=== PATIENT | male | born 1975 | race Caucasian/White ===

== ENCOUNTER 2019-11-23 09:32 | Emergency (ER) | payer OTHER, SELFPAY ==
[2019-11-23 10:11] VITALS: BP 135/83; PULSE 98; RESP 18; TEMP 36.2; O2SAT 100
--- NOTE | 2019-11-23 10:15 | DI.RAD.S_ITS ---
PROCEDURE: XR CHEST 2V INDICATIONS: 3 weeks cough, now left low posterior chest pain TECHNIQUE: 2 views of the chest were acquired. COMPARISON: None. FINDINGS: Surgical changes and devices: None. Lungs and pleura: Lungs are clear. No pleural effusions or pneumothorax. Mediastinum: Mediastinal contours are normal. Heart size is normal. Bones and chest wall: No suspicious bony abnormalities. Soft tissues appear unremarkable. IMPRESSION: No acute pulmonary process. Dictated by: Joi Adams M.D. on 11/23/2019 at 10:43 Approved by: Joi Adams M.D. on 11/23/2019 at 10:44
--- NOTE | 2019-11-23 11:25 | ED_ITS ---
HPI - URI/Sore Throat <ANNMARIE Ware - Last Filed: 11/23/19 20:30> General Chief Complaint: Upper Respiratory Symptoms Stated Complaint: Pain in left side, SOB Time Seen by Provider: 11/23/19 11:15 Source: patient Mode of arrival: Ambulatory Limitations: no limitations History of Present Illness HPI Narrative: 44-year-old male presents emergency department today complaining of a productive cough for over 3 weeks. He states that initially started with a sore throat and runny nose but has progressed to a prolonged cough. He states he feels wheezy and night. He denies any history of using an inhaler or any history of respiratory illnesses such as asthma. Patient reports associated left-sided rib pain that is worse with palpation and worse with cough, he describes it as a intermittent sharp stabbing 3/10 pain. He also reports associated postnasal drip. Patient denies any fevers, chills, nausea, vomiting, diarrhea, dizziness, or other concerns. Related Data Home Medications Medication Instructions Recorded Confirmed cetirizine 10 mg PO QDAY #0 10/24/17 clonazepam 0.5 mg PO DIRECTED 11/23/19 11/23/19 Previous Rx's Medication Instructions Recorded finasteride [Propecia] 1 mg PO QDAY #30 tab 10/24/17 mupirocin 1 tim TOPICAL TID #22 gm 10/24/17 albuterol sulfate 2 puff INHALATION Q4-6H PRN #8 gram 11/23/19 benzonatate [Tessalon Perles] 100 mg PO BID-TID PRN #30 cap 11/23/19 doxycycline hyclate 100 mg PO BID 7 Days #14 tab 11/23/19 Allergies Allergy/AdvReac Type Severity Reaction Status Date / Time No Known Drug Allergies Allergy Verified 11/23/19 10:14 Review of Systems <ANNMARIE Ware - Last Filed: 11/23/19 20:30> Review of Systems Narrative: REVIEW OF SYSTEMS: GENERAL: Denies fevers. HENT: No head trauma or hearing loss. EYES: No loss of vision, double vision, eye pain, irritation or discharge. CARDIOVASCULAR: No chest pain or syncope. RESPIRATORY: No shortness of breath. Complains of cough, see HPI. GASTROINTESTINAL: No nausea, vomiting, diarrhea, or constipation. MUSCULOSKELETAL: No weakness or injury. INTEGUMENTARY: No rash, lesions, or pruritus. NEURO: No memory loss, or confusion. Patient History <ANNMARIE Ware - Last Filed: 11/23/19 20:30> Medical History No significant medical problems (Acute) Social History Smoking Status: Never smoker Smoking Status: Never smoker alcohol intake frequency: holidays/special occasions only Substance Use Type: does not use Exam <ANNMARIE Ware - Last Filed: 11/23/19 20:30> Initial Vital Signs Initial Vital Signs: Vital Signs Temperature 97.1 F L 11/23/19 10:11 Pulse Rate 98 H 11/23/19 10:11 Respiratory Rate 18 11/23/19 10:11 Blood Pressure 135/83 11/23/19 10:11 Pulse Oximetry 100 11/23/19 10:11 PHYSICAL EXAMINATION: GENERAL: Well groomed, alert, and cooperative. Answers questions promptly and appropriately. Vital signs noted. HENT: Normocephalic, atraumatic. Ear canals patent. TMs intact without mucus or erythema. Oropharynx with small amount of erythema, Tonsils are not present. EYES: Conjunctiva pink, sclera white, no periorbital swelling. No discharge. CHEST: Tenderness to palpation of left ribs along axillary line. CARDIOVASCULAR: S1 and S2 sounds normal. Regular rate and rhythm, no murmurs, clicks, or bruits. RESPIRATORY: Normal respiratory rate, trachea midline, airway patent. No stridor, nasal flaring or accessory muscle use. Able to speak in full sentences. Lungs expiratory wheezes heard throughout all lung chand, moderate improvement after DuoNeb administration. Productive cough noted during exam. No crackles. MUSCULOSKELETAL: Normal gait and coordination. Equal tone and mass bilaterally. EXTREMITIES: Moves all extremities. SKIN: Warm, dry, soft, appropriate color for ethnicity. No lesions, rashes, or wounds. NEURO: Alert and Oriented X 3. Good coordination. No ataxia or cognitive issues. PSYCH: Appropriate affect and mood. <Natacha Vazquez DO - Last Filed: 11/24/19 19:06> Initial Vital Signs Initial Vital Signs: Vital Signs Temperature 97.1 F L 11/23/19 10:11 Pulse Rate 98 H 11/23/19 10:11 Respiratory Rate 18 11/23/19 10:11 Blood Pressure 135/83 11/23/19 10:11 Pulse Oximetry 100 11/23/19 10:11 Course <ANNMARIE Ware - Last Filed: 11/23/19 20:30> Course Course Narrative: Patient was given a DuoNeb in the emergency department, he reported improved symptoms. Patient still continued to have some wheezes, after discussion about risks and benefits with patient, patient opted to have a dose of Decadron to decrease wheezes and reactive airway component of illness. Patient was also given Toradol IM injection which he reported significant decrease in rib pain after administration. Patient remained hemodynamically stable, alert and talking in full sentences throughout the entire emergency department stay. Orders Ordered: Discontinued Medications Albuterol (Ventolin) 2.5 mg INH NOW ONE Stop: 11/23/19 11:19 Last Admin: 11/23/19 11:29 Dose: 2.5 mg Documented by: DIANE Dexamethasone (Decadron) 10 mg PO NOW ONE Stop: 11/23/19 11:53 Last Admin: 11/23/19 12:01 Dose: 10 mg Documented by: YASMANY Ketorolac Tromethamine (Toradol) 30 mg IM NOW ONE Stop: 11/23/19 11:25 Last Admin: 11/23/19 11:36 Dose: 30 mg Documented by: JESSI Vital Signs Vital signs: Vital Signs - 8 hr 11/23/19 10:11 11/23/19 11:30 Temperature 97.1 F L Pulse Rate 98 H 81 Respiratory Rate 18 14 Blood Pressure 135/83 Pulse Oximetry 100 98 <Natacha Vazquez DO - Last Filed: 11/24/19 19:06> Orders Ordered: Discontinued Medications Albuterol (Ventolin) 2.5 mg INH NOW ONE Stop: 11/23/19 11:19 Last Admin: 11/23/19 11:29 Dose: 2.5 mg Documented by: DIANE Dexamethasone (Decadron) 10 mg PO NOW ONE Stop: 11/23/19 11:53 Last Admin: 11/23/19 12:01 Dose: 10 mg Documented by: YASMANY Ketorolac Tromethamine (Toradol) 30 mg IM NOW ONE Stop: 11/23/19 11:25 Last Admin: 11/23/19 11:36 Dose: 30 mg Documented by: JESSI Vital Signs Vital signs: Vital Signs - 8 hr 11/23/19 10:11 11/23/19 11:30 Temperature 97.1 F L Pulse Rate 98 H 81 Respiratory Rate 18 14 Blood Pressure 135/83 Pulse Oximetry 100 98 MDM - URI/Sore Throat <Yadira CalderónANNMARIE - Last Filed: 11/23/19 20:30> Medical Records Attestation: I reviewed the patient's medical records. Lab Data Attestation: I reviewed the patient's lab results. Labs: Lab Results 11/23/19 Range/Units 10:15 Influenza A (RT-PCR) Flu a negative (NEGATIVE) Influenza B (RT-PCR) Flu b negative (NEGATIVE) Imaging Data Chest x-ray: Radiologist's Impression: [address] [address] XRay Report Signed Patient: Al Roche [facility]#: [id number] : 1975Acct:[id number] Age/Sex: 44 / MDate of Service: 11/23/19 Loc: ED Accession Number: [id number] Procedure: XR chest 2V Ordering Provider: Natacha Vazquez D.O. PROCEDURE: XR CHEST 2V INDICATIONS: 3 weeks cough, now left low posterior chest pain TECHNIQUE: 2 views of the chest were acquired. COMPARISON: None. FINDINGS: Surgical changes and devices: None. Lungs and pleura: Lungs are clear. No pleural effusions or pneumothorax. Mediastinum: Mediastinal contours are normal. Heart size is normal. Bones and chest wall: No suspicious bony abnormalities. Soft tissues appear unremarkable. IMPRESSION: No acute pulmonary process. Dictated by: Joi Adams M.D. on 11/23/2019 at 10:43 Approved by: Joi Adams M.D. on 11/23/2019 at 10:44 [facility] Narrative Medical decision making narrative: 44-year-old male presents emergency department for 3 weeks of cough and wheezing. History and examination most concerning for atypical pneumonia due to prolonged illness, coarse breath sounds, and wheezes. Differential also includes bronchitis and sinusitis but less likely due to presenting symptoms. Less likely influenza as swab is negative. I suspect there is a slight reactive airway component to this due to decreased wheezes after DuoNeb administration. Patient was given prescriptions for doxycycline and albuterol. He is also given a dose of dexamethasone due to significant wheezes on arrival. He was counseled extensively to return emergency department for new or worsening symptoms such as increased wheezing or high fevers. Patient verbalized understanding of plan of care. <Natacha Vazquez DO - Last Filed: 11/24/19 19:06> Lab Data Labs: Lab Results 11/23/19 Range/Units 10:15 Influenza A (RT-PCR) Flu a negative (NEGATIVE) Influenza B (RT-PCR) Flu b negative (NEGATIVE) Discharge Plan Departure Patient Disposition: Home Clinical Impression: Bronchitis, Atypical pneumonia Discharge Date/Time: 11/23/19 12:22 Instructions: DI for Acute Bronchitis, DI for Reactive Airway Disease-Adult, DI for Atypical Pneumonia Activity Restrictions/Additional Instructions: Thank you for entrusting me with your care today. As discussed, your chest x-ray is negative for any pleural effusions or pneumonia. Influenza swab is negative. Your symptoms are most consistent with bronchitis and atypical pneumonia. You been prescribed antibiotics and inhaler. I've also given you a cough suppressant to use at night. Please follow up with your primary care provider in 1-2 weeks for re-evaluation. Return emergency department for new or worsening symptoms such as high fevers, chest pain, worsening shortness breath, or other concerns. Prescriptions: New doxycycline hyclate 100 mg tablet 100 mg PO BID 7 Days Qty: 14 RF: 0 albuterol sulfate 90 mcg/actuation HFA aerosol inhaler 2 puff INHALATION Q4-6H PRN (Reason: shortness of breath or wheezing) Qty: 8 RF: 0 benzonatate [Tessalon Perles] 100 mg capsule 100 mg PO BID-TID PRN (Reason: cough) Qty: 30 RF: 0 No Action cetirizine 10 MG tablet 10 mg PO QDAY Qty: 0 RF: 0 mupirocin 2 % ointment 1 tim Topical TID Qty: 22 RF: 0 finasteride [Propecia] 1 MG tablet 1 mg PO QDAY Qty: 30 RF: 2 clonazepam 0.5 mg tablet 0.5 mg PO DIRECTED RF: 0 Referrals: Davida Montesinos DO [Primary Care Provider] -
[2019-11-23] MEDS: ALBUTEROL 2.5 MG/3 ML NEB (ADULT) INH (11:29)
[2019-11-23 11:30] VITALS: PULSE 81; RESP 14; O2SAT 98
[2019-11-23] MEDS: KETOROLAC 60 MG/2 ML VIAL 30 MG IM (11:36)
[2019-11-23 11:49] LABS: Influenza A - CEPHEID Flu A NEGATIVE (NEGATIVE); Influenza B - CEPHEID Flu B NEGATIVE (NEGATIVE)
[2019-11-23] MEDS: DEXAMETHASONE 10 MG/ML VIAL PO (12:01)
== END 2019-11-23 12:22 | disposition home or self-care (01) ==
PROVIDERS: Emergency Medicine; Emergency Provider Nurse Practitioner; PCP Family Medicine
DX: J18.9 Pneumonia, unspecified organism (principal); J40 Bronchitis, not specified as acute or chronic
CPT/HCPCS: 71046; 87502; 94640; 96372; 99283; J1100; J1885; J7613

== ENCOUNTER → 2020-02-03 15:02 | Outpatient (ROUT) | payer OTHER, SELFPAY ==
[2020-02-03 16:37] LABS: Alanine Aminotransferase 25 IU/L (<50); Albumin 4.6 g/dL (3.5-5.0); Albumin Globulin Ratio 1.6 (1.0-2.8); Alkaline Phosphatase 87 U/L (38-126); Aspartate Aminotransferase 24 IU/L (17-59); BUN Creatinine Ratio 13.7 (6-22); Bilirubin Total 0.6 mg/dL (0.2-1.3); Bilirubin Unconjugated 0.4 mg/dL (0.0-1.1); Blood Urea Nitrogen 16 mg/dL (9-20); Calcium 10.2 mg/dL (8.4-10.2); Carbon Dioxide 23 mmol/L (22-32); Chloride 101 mmol/L (98-107); Estimated Glomerular Filt Rate > 60.0 mL/min (>60); Globulin 2.9 g/dL (1.7-4.1); Glucose 92 mg/dL (70-100); HEMOLYSIS < 15 (0-50); Potassium 4.1 mmol/L (3.4-5.1); Sodium 135 mmol/L (137-145); Total Protein 7.5 g/dL (6.3-8.2)
[2020-02-03 17:24] LABS: Add Manual Diff / Slide Review NO; Basophils Absolute Auto 100 /uL (0-100); Basophils Percent Auto 0.5 % (0-2); Eosinophils Absolute Auto 0 /uL (0-450); Eosinophils Percent Auto 0.2 % (2-4); Hematocrit 44.4 % (41-53); Hemoglobin 14.9 g/dL (13.5-17.5); Lymphocytes Absolute Auto 2600 /uL (1100-4500); Lymphocytes Percent Auto 22.7 % (25-40); Mean Corpuscular HGB Conc 33.5 % (30-36); Mean Corpuscular Hemoglobin 30.7 PG (26-34); Mean Corpuscular Volume 91.4 fL (80-100); Monocytes Absolute Auto 800 /uL (0-900); Monocytes Percent Auto 6.9 % (3-14); Neutrophils Absolute Auto 7900 /uL (1500-7000); Neutrophils Percent Auto 69.7 % (50-75); Platelet Count 286 X10^3/uL (150-400); Red Blood Cell Count 4.85 X10^6/uL (4.5-5.9); Red Cell Distribution Width 13.6 % (11.6-14.8); White Blood Cell Count 11.3 X10^3/uL (4.5-11.0)
== END ==
PROVIDERS: PCP Family Medicine; Visit Provider Internal Medicine Infectious Disease
DX: R76.0 Raised antibody titer (principal)
CPT/HCPCS: 80053; 80076; 85025

== ENCOUNTER → 2020-04-01 14:50 | Outpatient (CLI) | payer OTHER, SELFPAY ==
[2020-04-01 14:54] LABS: Bacteria Urine None Seen; RBC Urine None Seen (0-5/HPF); WBC Urine None Seen (0-5/HPF)
[2020-04-01 16:07] LABS: Add Manual Diff / Slide Review NO; Basophils Absolute Auto 100 /uL (0-100); Basophils Percent Auto 1.1 % (0-2); Eosinophils Absolute Auto 100 /uL (0-450); Eosinophils Percent Auto 1.5 % (2-4); Hematocrit 45.7 % (41-53); Hemoglobin 15.2 g/dL (13.5-17.5); Lymphocytes Absolute Auto 1200 /uL (1100-4500); Lymphocytes Percent Auto 20.8 % (25-40); Mean Corpuscular HGB Conc 33.3 % (30-36); Mean Corpuscular Hemoglobin 31.7 PG (26-34); Mean Corpuscular Volume 95.2 fL (80-100); Monocytes Absolute Auto 600 /uL (0-900); Monocytes Percent Auto 9.9 % (3-14); Neutrophils Absolute Auto 3800 /uL (1500-7000); Neutrophils Percent Auto 66.7 % (50-75); Platelet Count 224 X10^3/uL (150-400); Red Cell Distribution Width 14.4 % (11.6-14.8); White Blood Cell Count 5.7 X10^3/uL (4.5-11.0)
[2020-04-01 16:18] LABS: Appearance Urine UA CLEAR; Bilirubin Urine UA NEGATIVE (NEGATIVE); Color Urine UA YELLOW; Glucose Urine UA NEGATIVE (Negative); Ketones Urine UA 1+ (NEGATIVE); Leukocyte Esterase Urine UA NEGATIVE (NEGATIVE); Nitrite Urine UA NEGATIVE (Negative); Occult Blood Urine UA NEGATIVE (Negative); Protein Urine UA NEGATIVE (Negative); Urobilinogen Urine UA 0.2 E.U./dL (0.2)
[2020-04-01 16:30] LABS: Culture Indicated Urine Cult Not Indicated; Urine Comments Microscopic Normal
[2020-04-01 17:46] LABS: Prostate Specific Antigen 0.163 ng/mL (0.10-4.00)
== END ==
PROVIDERS: PCP Family Medicine; Referring Provider Family Medicine; Visit Provider Family Medicine
DX: R33.8 Other retention of urine (principal)
CPT/HCPCS: 36415; 81001; 84153; 85025

== ENCOUNTER → 2020-05-10 15:24 | Outpatient (CLI) | payer OTHER, SELFPAY ==
--- NOTE | 2020-05-10 15:26 | DI.RAD.S_ITS ---
PROCEDURE: XR SHOULDER RT MIN 2V INDICATIONS: Shoulder pain TECHNIQUE: 3 views of the shoulder were acquired. COMPARISON: None. FINDINGS: Bones: No fractures or dislocations. No suspicious bony lesions. Visualized ribs appear intact. Presumed subcentimeter bone island projects in the humeral head. Slight lateral downsloping appearance of the acromion. Moderate AC joint degeneration. Soft tissues: No suspicious soft tissue calcifications. IMPRESSION: Slight lateral downsloping appearance of the acromion Moderate AC joint degeneration. Elsewhere, grossly unremarkable examination. If the patient's pain or other symptoms persist, consider further evaluation with MRI Dictated by: Jin Macdonald M.D. on 05/10/2020 at 16:39 Approved by: Jin Macdonald M.D. on 05/10/2020 at 16:41
== END ==
PROVIDERS: PCP Family Medicine; Referring Provider Family Medicine; Visit Provider Family Medicine
DX: M25.511 Pain in right shoulder (principal); M19.011 Primary osteoarthritis, right shoulder
CPT/HCPCS: 73030

== ENCOUNTER → 2020-09-23 09:39 | Outpatient (CLI) | payer OTHER, SELFPAY ==
--- NOTE | 2020-09-23 09:40 | DI.CT.S_ITS ---
PROCEDURE: CT SINUS SCREEN WO CON INDICATIONS: Persistent frontal headache sinus pressure TECHNIQUE: Noncontrast 3.0 mm axial images acquired from the frontal sinuses to the mid-sella, with coronal and sagittal reformats. For radiation dose reduction, the following was used: automated exposure control, adjustment of mA and/or kV according to patient size. COMPARISON: None. FINDINGS: Image quality: Excellent. Paranasal sinuses are normally aerated. No mucosal thickening identified in the paranasal sinuses. No air-fluid levels in the paranasal sinuses. The ostiomeatal units are patent bilaterally. No osseous thickening, osseous remodeling or osseous erosive changes. Nasal septum is slightly deviated to the right anteriorly. No rolanda bullosa or paradoxical turbinates. IMPRESSION: No paranasal sinus mucosal thickening or air-fluid levels. Dictated by: Charmaine Castano MD, PhD on 09/23/2020 at 10:07 Approved by: Charmaine Castano MD, PhD on 09/23/2020 at 10:09
== END ==
PROVIDERS: PCP Family Medicine; Referring Provider Family Medicine; Visit Provider Family Medicine
DX: J32.9 Chronic sinusitis, unspecified (principal); R51.9 Headache, unspecified
CPT/HCPCS: 70486

== ENCOUNTER → 2020-09-28 13:05 | Outpatient (CLI) | payer OTHER, SELFPAY ==
[2020-09-28 13:47] LABS: Influenza A - CEPHEID Flu A NEGATIVE (NEGATIVE); Influenza B - CEPHEID Flu B NEGATIVE (NEGATIVE)
[2020-09-29 11:36] LABS: COVID19 Sendout Not Detected (Not Detected)
== END ==
PROVIDERS: PCP Family Medicine; Visit Provider Physician Assistant
DX: J02.9 Acute pharyngitis, unspecified (principal); J32.9 Chronic sinusitis, unspecified
CPT/HCPCS: 87502; 87635

== ENCOUNTER → 2021-01-18 08:35 | Outpatient (CLI) | payer OTHER, SELFPAY ==
[2021-01-18 09:44] LABS: Add Manual Diff / Slide Review NO; Basophils Absolute Auto 100 /uL (0-100); Basophils Percent Auto 1.5 % (0-2); Eosinophils Absolute Auto 100 /uL (0-450); Eosinophils Percent Auto 1.6 % (2-4); Hematocrit 43.9 % (41-53); Hemoglobin 14.7 g/dL (13.5-17.5); Lymphocytes Absolute Auto 1600 /uL (1100-4500); Lymphocytes Percent Auto 31.3 % (25-40); Mean Corpuscular HGB Conc 33.6 % (30-36); Mean Corpuscular Hemoglobin 31.8 PG (26-34); Mean Corpuscular Volume 94.8 fL (80-100); Monocytes Absolute Auto 400 /uL (0-900); Monocytes Percent Auto 8.3 % (3-14); Neutrophils Absolute Auto 2900 /uL (1500-7000); Neutrophils Percent Auto 57.3 % (50-75); Platelet Count 140 X10^3/uL (150-400); Red Blood Cell Count 4.64 X10^6/uL (4.5-5.9); Red Cell Distribution Width 13.2 % (11.6-14.8); White Blood Cell Count 5.1 X10^3/uL (4.5-11.0)
[2021-01-18 10:11] LABS: Alanine Aminotransferase 69 IU/L (<50); Albumin 4.3 g/dL (3.5-5.0); Albumin Globulin Ratio 1.6 (1.0-2.8); Alkaline Phosphatase 92 U/L (38-126); Aspartate Aminotransferase 46 IU/L (17-59); BUN Creatinine Ratio 13.6 (6-22); Bilirubin Total 0.5 mg/dL (0.2-1.3); Blood Urea Nitrogen 18 mg/dL (9-20); Calcium 9.5 mg/dL (8.4-10.2); Carbon Dioxide 31 mmol/L (22-32); Chloride 102 mmol/L (98-107); Estimated Glomerular Filt Rate 59.2 mL/min (>60); Globulin 2.7 g/dL (1.7-4.1); Glucose 91 mg/dL (70-100); HEMOLYSIS < 15 (0-50); Potassium 4.3 mmol/L (3.4-5.1); Sodium 138 mmol/L (137-145)
[2021-01-18 10:35] LABS: Thyroid Stimulating Hormone 2.37 uIU/mL (0.47-4.68)
== END ==
PROVIDERS: PCP Family Medicine; Referring Provider Family Medicine; Visit Provider Family Medicine
DX: G35 Multiple sclerosis (principal); R53.83 Other fatigue
CPT/HCPCS: 36415; 80053; 84443; 85025

== ENCOUNTER → 2021-01-24 10:56 | Outpatient (CLI) | payer OTHER, SELFPAY ==
[2021-01-24 13:52] LABS: Creatinine Urine Random 68.7 mg/dL
[2021-01-24 13:59] LABS: Microalbumin Urine Random < 0.6 mg/dL (0-1.6)
== END ==
PROVIDERS: PCP Family Medicine; Referring Provider Family Medicine; Visit Provider Family Medicine
DX: G35 Multiple sclerosis (principal)
CPT/HCPCS: 82043; 82570

== ENCOUNTER → 2021-05-23 11:54 | Outpatient (CLI) | payer OTHER, SELFPAY ==
[2021-05-23 12:43] LABS: Reticulocyte Count, Percent 0.8 % (0.87-2.60)
[2021-05-23 12:46] LABS: Add Manual Diff / Slide Review NO; Basophils Absolute Auto 0 /uL (0-100); Basophils Percent Auto 0.8 % (0-2); Eosinophils Absolute Auto 100 /uL (0-450); Eosinophils Percent Auto 1.3 % (2-4); Hematocrit 41.8 % (41-53); Hemoglobin 13.9 g/dL (13.5-17.5); Lymphocytes Absolute Auto 1500 /uL (1100-4500); Lymphocytes Percent Auto 30.2 % (25-40); Mean Corpuscular HGB Conc 33.3 % (30-36); Mean Corpuscular Volume 96.1 fL (80-100); Monocytes Absolute Auto 500 /uL (0-900); Monocytes Percent Auto 9.8 % (3-14); Neutrophils Absolute Auto 3000 /uL (1500-7000); Neutrophils Percent Auto 57.9 % (50-75); Platelet Count 155 X10^3/uL (150-400); Red Blood Cell Count 4.35 X10^6/uL (4.5-5.9); Red Cell Distribution Width 12.9 % (11.6-14.8); White Blood Cell Count 5.1 X10^3/uL (4.5-11.0)
[2021-05-23 13:13] LABS: Alanine Aminotransferase 75 IU/L (<50); Albumin 4.2 g/dL (3.5-5.0); Albumin Globulin Ratio 1.6 (1.0-2.8); Alkaline Phosphatase 91 U/L (38-126); Aspartate Aminotransferase 57 IU/L (17-59); BUN Creatinine Ratio 23.6 (6-22); Bilirubin Total 0.3 mg/dL (0.2-1.3); Blood Urea Nitrogen 25 mg/dL (9-20); Calcium 9.6 mg/dL (8.4-10.2); Carbon Dioxide 29 mmol/L (22-32); Chloride 104 mmol/L (98-107); Estimated Glomerular Filt Rate > 60.0 mL/min (>60); Globulin 2.6 g/dL (1.7-4.1); Glucose 89 mg/dL (70-100); HEMOLYSIS < 15 (0-50); Potassium 4.6 mmol/L (3.4-5.1); Sodium 138 mmol/L (137-145); Total Protein 6.8 g/dL (6.3-8.2)
[2021-05-23 13:43] LABS: TSH w/ Reflex to FT4 1.44 uIU/mL (0.47-4.68)
[2021-05-23 16:13] LABS: Creatinine Urine Random 26.6 mg/dL
[2021-05-23 16:22] LABS: Microalbumin Urine Random < 0.6 mg/dL (0-1.6)
== END ==
PROVIDERS: PCP Family Medicine; Referring Provider Family Medicine; Visit Provider Family Medicine
DX: R89.9 Unspecified abnormal finding in specimens from other organs, systems and tissues (principal)
CPT/HCPCS: 36415; 80053; 82043; 82570; 84443; 85025; 85045

== ENCOUNTER → 2022-08-07 11:52 | Outpatient (CLI) | payer OTHER, SELFPAY ==
[2022-08-07 13:40] LABS: Add Manual Diff / Slide Review NO; Basophils Absolute Auto 100 /uL (0-100); Basophils Percent Auto 1.3 % (0-2); Eosinophils Absolute Auto 100 /uL (0-450); Eosinophils Percent Auto 1.4 % (2-4); Hematocrit 43.8 % (41-53); Hemoglobin 14.8 g/dL (13.5-17.5); Lymphocytes Absolute Auto 1700 /uL (1100-4500); Lymphocytes Percent Auto 31.9 % (25-40); Mean Corpuscular HGB Conc 33.8 % (30-36); Mean Corpuscular Hemoglobin 31.6 PG (26-34); Mean Corpuscular Volume 93.6 fL (80-100); Monocytes Absolute Auto 400 /uL (0-900); Monocytes Percent Auto 7.4 % (3-14); Neutrophils Absolute Auto 3000 /uL (1500-7000); Platelet Count 217 X10^3/uL (150-400); Red Blood Cell Count 4.68 X10^6/uL (4.5-5.9); Red Cell Distribution Width 12.9 % (11.6-14.8); White Blood Cell Count 5.2 X10^3/uL (4.5-11.0)
[2022-08-07 13:55] LABS: Alanine Aminotransferase 45 IU/L (<50); Albumin 4.5 g/dL (3.5-5.0); Albumin Globulin Ratio 1.4 (1.0-2.8); Alkaline Phosphatase 101 U/L (38-126); Aspartate Aminotransferase 43 IU/L (17-59); BUN Creatinine Ratio 17.1 (6-22); Bilirubin Total 0.6 mg/dL (0.2-1.3); Blood Urea Nitrogen 19 mg/dL (9-20); Calcium 9.3 mg/dL (8.4-10.2); Carbon Dioxide 30 mmol/L (22-32); Chloride 100 mmol/L (98-107); Estimated Glomerular Filt Rate > 60 mL/min (>60); Globulin 3.3 g/dL (1.7-4.1); Glucose 86 mg/dL (70-100); HEMOLYSIS < 15 (0-50); Potassium 4.2 mmol/L (3.4-5.1); Sodium 140 mmol/L (137-145); Total Protein 7.8 g/dL (6.3-8.2)
[2022-08-07 14:26] LABS: Ferritin 38 ng/mL (18-464)
[2022-08-07 14:40] LABS: Vitamin B12 569 pg/mL (239-931)
== END ==
PROVIDERS: PCP Family Medicine; Referring Provider Nurse Practitioner; Visit Provider Nurse Practitioner
DX: G37.9 Demyelinating disease of central nervous system, unspecified (principal); G25.81 Restless legs syndrome; G62.9 Polyneuropathy, unspecified
CPT/HCPCS: 36415; 80053; 82607; 82728; 85025

== ENCOUNTER → 2023-08-30 10:28 | Outpatient (CLI) | payer OTHER, SELFPAY | PROVIDERS: PCP Family Medicine; Visit Provider Physician Assistant | DX: J02.9 Acute pharyngitis, unspecified (principal) | CPT/HCPCS: 87070 ==

== ENCOUNTER → 2024-05-13 14:36 | Outpatient (CLI) | payer OTHER, SELFPAY ==
[2024-05-13 15:34] LABS: Cholesterol 205 mg/dL (140-199); HDL Cholesterol 53 mg/dL (40-60); LDL Cholesterol Calculated 120 mg/dL (<100); Triglycerides 158 mg/dL (35-150)
== END ==
PROVIDERS: PCP Family Medicine; Referring Provider Family Medicine; Visit Provider Family Medicine
DX: Z00.00 Encounter for general adult medical examination without abnormal findings (principal)
CPT/HCPCS: 36415; 80061

== ENCOUNTER 2024-12-17 16:43 | Emergency (ER) | payer OTHER, SELFPAY ==
[2024-12-17 16:48] VITALS: BP 126/68; PULSE 80; RESP 16; TEMP 37; O2SAT 99; BMI 27.8
--- NOTE | 2024-12-17 19:55 | DI.RAD.S_ITS ---
PROCEDURE: XR HAND RT MIN 3V INDICATIONS: Snuffbox tenderness after injury TECHNIQUE: 3 views of the hand(s) acquired. COMPARISON: None. FINDINGS: Bones: No fractures or dislocations. Carpal bones are normally aligned. No suspicious bony lesions. Soft tissues: No suspicious soft tissue calcifications. IMPRESSION: No visualized acute fracture or dislocation. However, if clinical concern and/or pain persist, short interval imaging followup in 7-10 days is recommended, as occult injury cannot be definitively excluded. Dictated by: Joi Adams M.D. on 12/17/2024 at 20:58 Approved by: Joi Adams M.D. on 12/17/2024 at 20:59
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
[2024-12-17] MEDS: BACITRACIN OINT 0.9 GM PCKT 1 APPLIC TOP (20:07)
[2024-12-17] MEDS: AMOXICILLIN/CLAV 875/125 MG 1 TAB PO (21:19)
[2024-12-17 21:23] VITALS: BP 122/82; PULSE 66; RESP 14; O2SAT 98
== END 2024-12-17 21:25 | disposition home or self-care (01) ==
PROVIDERS: Emergency Provider Emergency Medicine; PCP Family Medicine
DX: S60.371A Other superficial bite of right thumb, initial encounter (principal); S40.811A Abrasion of right upper arm, initial encounter; S60.811A Abrasion of right wrist, initial encounter; S60.511A Abrasion of right hand, initial encounter; W50.3XXA Accidental bite by another person, initial encounter
CPT/HCPCS: 73130; 99283

== ENCOUNTER → 2025-06-11 08:35 | Outpatient (CLI) | payer OTHER, SELFPAY ==
[2025-06-11 09:13] LABS: Add Manual Diff / Slide Review NO; Hematocrit 43.7 % (41-53); Hemoglobin 14.9 g/dL (13.5-17.5); Lymphocytes Absolute Auto 1600 /uL (1100-4500); Mean Corpuscular HGB Conc 34.0 % (30-36); Mean Corpuscular Hemoglobin 31.1 PG (26-34); Mean Corpuscular Volume 91.6 fL (80-100); Platelet Count 203 X10^3/uL (150-400)
[2025-06-11 09:38] LABS: Alanine Aminotransferase 43 IU/L (<50); Albumin 4.4 g/dL (3.5-5.0); Albumin Globulin Ratio 1.8 (1.0-2.8); Alkaline Phosphatase 87 U/L (38-126); Blood Urea Nitrogen 19 mg/dL (9-20); Calcium 9.5 mg/dL (8.4-10.2); Carbon Dioxide 24 mmol/L (22-32); Chloride 107 mmol/L (98-107); Cholesterol 234 mg/dL (140-199); Estimated Glomerular Filt Rate > 60 mL/min (>60); Globulin 2.5 g/dL (1.7-4.1); Glucose 95 mg/dL (70-99); HDL Cholesterol 46 mg/dL (40-60); HEMOLYSIS < 15 (0-50); Potassium 4.5 mmol/L (3.4-5.1); Sodium 138 mmol/L (137-145); Total Protein 6.9 g/dL (6.3-8.2); Triglycerides 109 mg/dL (35-150)
== END ==
PROVIDERS: PCP Family Medicine; Referring Provider Family Medicine; Visit Provider Family Medicine
DX: Z00.00 Encounter for general adult medical examination without abnormal findings (principal); F41.9 Anxiety disorder, unspecified
CPT/HCPCS: 36415; 80053; 80061; 85025

== ENCOUNTER → 2025-09-03 14:11 | Outpatient (CLI) | payer OTHER, SELFPAY ==
[2025-09-03 15:18] LABS: Add Manual Diff / Slide Review NO; Hematocrit 44.8 % (41-53); Hemoglobin 14.8 g/dL (13.5-17.5); Lymphocytes Absolute Auto 1800 /uL (1100-4500); Mean Corpuscular HGB Conc 33.1 % (30-36); Mean Corpuscular Hemoglobin 30.2 PG (26-34); Mean Corpuscular Volume 91.4 fL (80-100); Platelet Count 238 X10^3/uL (150-400)
[2025-09-03 16:01] LABS: Alanine Aminotransferase 47 IU/L (<50); Albumin 4.4 g/dL (3.5-5.0); Albumin Globulin Ratio 1.5 (1.0-2.8); Alkaline Phosphatase 98 U/L (38-126); Blood Urea Nitrogen 26 mg/dL (9-20); Calcium 9.3 mg/dL (8.4-10.2); Carbon Dioxide 27 mmol/L (22-32); Chloride 103 mmol/L (98-107); Estimated Glomerular Filt Rate > 60 mL/min (>60); Globulin 2.9 g/dL (1.7-4.1); Glucose 82 mg/dL (70-99); HEMOLYSIS < 15 (0-50); Potassium 4.3 mmol/L (3.4-5.1); Sodium 139 mmol/L (137-145); Total Protein 7.3 g/dL (6.3-8.2)
== END ==
PROVIDERS: PCP Family Medicine; Referring Provider Psychiatry & Neurology Neurology; Visit Provider Psychiatry & Neurology Neurology
DX: G35.A Relapsing-remitting multiple sclerosis (principal)
CPT/HCPCS: 36415; 80053; 85025